=== PATIENT | male | born 1990 | race Caucasian/White ===

== ENCOUNTER 2023-09-27 21:00 | Emergency (ER) | payer SELFPAY ==
[2023-09-27 21:02] VITALS: BP 127/77; PULSE 63; RESP 16; TEMP 36.7; O2SAT 98
== END 2023-09-27 23:42 | disposition left against medical advice (07) ==
PROVIDERS: Emergency Provider Physician Assistant
DX: T15.91XA Foreign body on external eye, part unspecified, right eye, initial encounter (principal)
CPT/HCPCS: 99199

== ENCOUNTER 2023-12-23 14:37 | Outpatient (CLI) | payer OTHER, SELFPAY ==
--- NOTE | ~2023-12-23 | US_ITS ---
EXAMINATION: US soft tissue LE DATE: 12/23/2023 15:02 INDICATION: Left thigh mass. TECHNIQUE: Multiple grayscale and Doppler ultrasound images of the left lower limb were obtained. COMPARISON: None FINDINGS: In the medial left thigh, there is a 4.6 x 4.6 x 1.7 cm subcutaneous mass with similar echo texture and echogenicity to normal subcutaneous fat, consistent with a lipoma. A second subcutaneous lipoma measures 2.1 x 2.3 x 1.1 cm in the posterior thigh. IMPRESSION: 1. Lipomas in the left thigh. Reviewed, dictated and finalized at location A.
--- NOTE | ~2023-12-23 | US_ITS ---
EXAMINATION: US soft tissue abdomen DATE: 12/23/2023 15:02 INDICATION: Umbilical hernia. TECHNIQUE: Multiple grayscale and Doppler ultrasound images of the abdomen were obtained. COMPARISON: None FINDINGS: There is an umbilical hernia containing fat. In the left flank, there is a 2.6 x 1.3 x 0.9 cm subcutaneous mass with echogenicity and echotexture equal to normal subcutaneous fat, consistent w ith a lipoma. IMPRESSION: 1. Umbilical hernia containing fat. 2. Subcutaneous lipoma in left flank. Reviewed, dictated and finalized at location A.
== END 2023-12-23 14:38 | disposition home or self-care (01) ==
LOC: GOSHIMG 14:37
DX: K42.9 Umbilical hernia without obstruction or gangrene (principal); R22.9 Localized swelling, mass and lump, unspecified
CPT/HCPCS: 76705; 76882